=== PATIENT | male | born 1990 | race Caucasian/White ===

== ENCOUNTER 2017-01-10 19:15 | Emergency (ER) | payer OTHER ==
--- NOTE | 2017-01-10 19:46 | EDM.PDOC ---
ED HPI GENERAL MEDICAL PROBLEM - General Chief Complaint: Fever Stated Complaint: RASH, FEVER, POSSIBLE WEST NILE VIRUS Time Seen by Provider: 01/10/17 19:30 Source of Information: Reports: Patient History Limitations: Reports: No Limitations - History of Present Illness INITIAL COMMENTS - FREE TEXT/NARRATIVE: HISTORY AND PHYSICAL: History of present illness: [26-year-old male with no significant past history now presents emergency department concerned that he might have West Nile virus. Patient states she's had fevers for several days intermittently feels fatigued and has a rash. He has no headache or stiff neck. No neurologic complaints. No cough or chest pain denies abdominal pain. Had some mild loose stool because now resolved no vomiting or diarrhea.] Review of systems: As per history of present illness and below otherwise all systems reviewed and negative. Past medical history: As per history of present illness and as reviewed below otherwise noncontributory. Surgical history: As per history of present illness and as reviewed below otherwise noncontributory. Social history: No reported history of drug or alcohol abuse. Family history: As per history of present illness and as reviewed below otherwise noncontributory. Physical exam: Diffuse very mild scattered papular rash nontender. Patient well- appearing alert smiling vigorous supple neck nonfocal neuro benign exam HEENT: Atraumatic, normocephalic, pupils reactive, negative for conjunctival pallor or scleral icterus, mucous membranes moist, throat clear, neck supple, nontender, trachea midline. Lungs: Clear to auscultation, breath sounds equal bilaterally, chest nontender. Heart: S1S2, regular, negative for clicks, rubs, or JVD. Abdomen: Soft, nondistended, nontender. Negative for masses or hepatosplenomegaly. Negative for costovertebral tenderness. Pelvis: Stable nontender. Genitourinary: Deferred. Rectal: Deferred. Extremities: Atraumatic, negative for cords or calf pain. Neurovascular unremarkable. Neuro: Awake, alert, oriented. Cranial nerves II through XII unremarkable. Cerebellum unremarkable. Motor and sensory unremarkable throughout. Exam nonfocal. Diagnostics: [] Therapeutics: [] Impression: [Viral syndrome Rash] Plan: [Signs and symptoms consistent with viral syndrome however patient's well- hydrated and clinically completely normal-appearing with a benign exam. Discussed with patient that most cases of West Nile iris infection are subclinical and the treatment is supportive therapy only in the immunocompetent patient. He has no fever currently clearly supple neck with no headache. Nonfocal neuro. Discussed that is more likely the patient has a specific viral syndrome however if his symptoms persist or worsen he can follow-up with his DrMichele for serologic testing as needed. Will prescribe steroids for rash. Patient aware to follow-up with PCP and return immediately for new severe or worsening symptoms Definitive disposition and diagnosis as appropriate pending reevaluation and review of above. body pain Pain Score (Numeric/FACES): 0 - Related Data Allergies Allergy/AdvReac Type Severity Reaction Status Date / Time Penicillins Allergy Other Verified 01/10/17 19:26 Home Meds: Home Meds Prednisone [IMW: predniSONE] 60 mg PO WITHBREAKFAST #5 tab 01/10/17 [Rx] Past Medical History HEENT History: Reports: None Cardiovascular History: Reports: None Respiratory History: Reports: None Gastrointestinal History: Reports: None Genitourinary History: Reports: None Musculoskeletal History: Reports: None Neurological History: Reports: None Psychiatric History: Reports: None Endocrine/Metabolic History: Reports: None Hematologic History: Reports: None Immunologic History: Reports: None Oncologic (Cancer) History: Reports: None Dermatologic History: Reports: None - Infectious Disease History Infectious Disease History: Reports: Chicken Pox Social & Family History - Family History Family Medical History: Noncontributory - Tobacco Use Smoking Status *Q: Current Every Day Smoker Years of Tobacco use: 13 Packs/Tins Daily: 1 - Caffeine Use Caffeine Use: Reports: Soda - Recreational Drug Use Recreational Drug Use: No ED ROS GENERAL - Review of Systems Review Of Systems: See Below (History of present illness) ED EXAM, GENERAL - Physical Exam Exam: See Below (History of present illness) Course - Vital Signs Last Recorded V/S: Last Vital Signs Temp 36.1 C 01/10/17 19:26 Pulse 75 01/10/17 20:35 Resp 18 01/10/17 20:35 BP 127/77 01/10/17 20:35 Pulse Ox 98 01/10/17 20:35 Departure - Departure Time of Disposition: 19:41 Disposition: Home, Self-Care 01 Condition: Good Clinical Impression: Viral syndrome, Rash - Discharge Information Prescriptions: Prednisone [IMW: predniSONE] 60 mg PO WITHBREAKFAST #5 tab Instructions: Fever, Adult, [id number] Referrals: PCP,None [Primary Care Provider] - Forms: ED Department Discharge Additional Instructions: It appears that you have a viral syndrome. You're concerned you've been in environments with mosquitoes and regarding possibility of West Nile virus infection. Most human infections with West Nile virus do not cause any symptoms at all. Of the people that have symptoms, they are typically consistent with a viral syndrome such as colds or flu.. Rarely people get severe complication such as meningitis or infection around the brain called Encephalitis, or spinal cord problems. Again this is very rare. Given that West Nile virus is a viral syndrome there is no specific treatment and supportive therapy is administered just like for the common cold or atypical viral syndrome. There is no utility to doing serologic testing today as there is no specific treatment. If your symptoms worsen or you become increasingly or profoundly ill ,follow-up with your doctor immediately or return to the emergency department for reevaluation and further workup and treatment as needed. Always wear appropriate protective clothing and use effective insect repellent on any exposed areas when in high risk environments for mosquito bites. All up with your Dr. and return immediately for new severe or worsening symptoms
[2017-01-11 05:06] VITALS: BP 127/77
== END 2017-01-10 20:39 | disposition home or self-care (01) ==
LOC: MW.ED 19:15
DX: B34.9 Viral infection, unspecified (principal); R21 Rash and other nonspecific skin eruption; F17.210 Nicotine dependence, cigarettes, uncomplicated; Z88.0 Allergy status to penicillin
CPT/HCPCS: 99282; 99283

== ENCOUNTER 2023-10-12 | Day surgery (SDC) | payer BC, OTHER ==
[2023-10-12] MEDS: Morphine 2 MG/ML SYRINGE IVPUSH ONE ×2 (00:31→02:34)
[2023-10-12] MEDS: Sodium Chloride 0.9% 1,000 ML IV ONE (00:31)
[2023-10-12] MEDS: Ondansetron 4 MG/2 ML SDV IVPUSH ONE (00:31)
[2023-10-12 00:33] LABS: BASOPHILS ABSOLUTE AUTO 0.06 K/uL (0.00-0.20); BASOPHILS PERCENT AUTO 0.4 % (0.0-1.0); EOSINOPHILS ABSOLUTE AUTO 0.16 K/uL (0.00-0.45); IMMATURE GRAN ABSOLUTE AUTO 0.05 K/uL (0.00-0.05); IMMATURE GRAN PERCENT AUTO 0.3 % (0.0-0.4); LYMPHOCYTES ABSOLUTE AUTO 2.72 K/uL (1.00-4.80); LYMPHOCYTES PERCENT AUTO 16.8 % (24.0-44.0); MEAN CORPUSCULAR HEMOGLOBIN 30.7 pg (28.0-32.0); MEAN CORPUSCULAR HGB CONC 34.8 g/dL (32.0-36.0); MEAN CORPUSCULAR VOLUME 88.3 fL (83.0-99.0); MEAN PLATELET VOLUME 9.4 fL (9.4-12.4); MONOCYTES ABSOLUTE AUTO 1.21 K/uL (0.00-0.80); MONOCYTES PERCENT AUTO 7.5 % (0.0-8.0); NEUTROPHILS ABSOLUTE AUTO 12.03 K/uL (1.80-7.70); PLATELET COUNT,PLT 263 K/uL (150-400); RED BLOOD CELL COUNT 5.21 M/uL (4.52-5.90); WHITE BLOOD CELL COUNT,WBC 16.23 K/uL (3.9-11.3)
[2023-10-12] MEDS: Sodium Chloride 0.9% 2.5 ML Syringe FLUSH PRN (00:33)
[2023-10-12] MEDS: Sodium Chloride 0.9% 10 ML Syringe FLUSH PRN (00:33)
[2023-10-12 01:02] LABS: A/G RATIO 0.9 (0.9-1.6); ALBUMIN 3.7 g/dL (3.4-5.0); BILIRUBIN TOTAL 0.4 mg/dL (0.2-1.0); CALCIUM 9.1 mg/dL (8.5-10.1); CREATININE 1.3 mg/dL (0.8-1.3); EST CRCL DRUG DOSING (CG) 90.49 mL/min; POTASSIUM,K 4.1 mmol/L (3.5-5.1); PROTEIN TOTAL,TP 7.7 g/dL (6.4-8.2)
[2023-10-12] MEDS: Cefepime 2 GM in Sodium Chloride 0.9% 50 ML IV ONE (01:10)
[2023-10-12] MEDS: metroNIDAZOLE/Normal Saline 500 MG in Premix Bag 1 BAG IV ONE (01:22)
[2023-10-12] MEDS: Iopamidol 755 MG/ML 500 ML Multipack Bottle IVPUSH ONE (01:27)
[2023-10-12] MEDS: Lidocaine 1% with EPINEPHrine 1:100,000 50 ML MDV INFILT STA (02:32)
[2023-10-12] MEDS: Ketorolac 30 MG/ML SDV IVPUSH ONE (02:33)
[2023-10-12] MEDS: Lidocaine 1% with EPINEPHrine 1:200,000 30 ML SDV INFILT STA (02:35)
[2023-10-12] MEDS: D5 1/2 NS w/ 20 mEq/L KCl 1,000 ML IV SCH (02:57)
[2023-10-12] MEDS ORDERED: Morphine 2 MG/ML SYRINGE IVPUSH PRN ×2 (03:30→07:25)
[2023-10-12] MEDS ORDERED: HYDROmorphone 1 MG/ML Syringe IVPUSH PRN (07:25)
[2023-10-12] MEDS ORDERED: Rocuronium Bromide 50 MG/5 ML Syringe ONE (07:25)
[2023-10-12] MEDS ORDERED: fentaNYL 50 MCG/ML SDV IVPUSH PRN (07:25)
[2023-10-12] MEDS ORDERED: Lidocaine 2% 5 ML SDV ONE (07:25)
[2023-10-12] MEDS ORDERED: Albuterol 0.083% 2.5 MG/3 ML Neb Soln NEB PRN (07:25)
[2023-10-12] MEDS ORDERED: Metoclopramide 10 MG/2 ML SDV IVPUSH PRN (07:25)
[2023-10-12] MEDS ORDERED: Dexamethasone 4 MG/ML 5 ML MDV ONE (07:25)
[2023-10-12] MEDS ORDERED: Ondansetron 4 MG/2 ML SDV IVPUSH PRN (07:25)
[2023-10-12] MEDS ORDERED: droPERidol 5 MG/2 ML SDV IVPUSH PRN (07:25)
[2023-10-12] MEDS ORDERED: Ketorolac 30 MG/ML SDV ONE (07:25)
[2023-10-12] MEDS ORDERED: Sugammadex Sodium 200 MG/2 ML VIAL IV ONE (07:25)
[2023-10-12] MEDS ORDERED: Propofol 200 MG/20 ML SDV ONE (07:25)
[2023-10-12] MEDS ORDERED: Naloxone 0.4 MG/ML SDV IVPUSH PRN (07:25)
[2023-10-12] MEDS ORDERED: fentaNYL 100 MCG/2 ML SDV ONE (07:26)
[2023-10-12] MEDS ORDERED: Ketamine HCL/NACL, ISO-OSM 50 MG/5 ML Syringe ONE (07:30)
[2023-10-12] MEDS ORDERED: Bupivacaine 0.5% 30 ML SDV ONE (07:32)
[2023-10-12] MEDS ORDERED: Morphine 10 MG/ML SDV ONE (08:08)
[2023-10-12] MEDS ORDERED: Acetaminophen/HYDROcodone 325-5 MG Tab PO PRN (08:35)
[2023-10-12] MEDS ORDERED: Morphine 4 MG/ML Syringe IVPUSH PRN (08:35)
[2023-10-12] MEDS ORDERED: Lactated Ringers 1,000 ML IV SCH (08:45)
[2023-10-12] MEDS: Cefepime 2 GM in Sodium Chloride 0.9% 50 ML IV SCH (10:15)
[2023-10-12] MEDS: metroNIDAZOLE/Normal Saline 500 MG in Premix Bag 1 BAG IV SCH (11:07)
[2023-10-12 12:23] VITALS: BP 122/73; PULSE 91
== END 2023-10-12 13:40 | disposition home or self-care (01) ==
LOC: MW.ED → MW.MS 02:46 → MW.SDS 02:46
PROVIDERS: ATTEND Surgery
DX: K61.0 Anal abscess (principal); F32.A Depression, unspecified; F41.9 Anxiety disorder, unspecified; F17.210 Nicotine dependence, cigarettes, uncomplicated; Z79.899 Other long term (current) drug therapy; Z88.0 Allergy status to penicillin
CPT/HCPCS: 36415; 46050; 74177; 80053; 83605; 83690; 85025; 87040; 87070; 87075; 87205; J0665; J0692; J1100; J1836; J1885; J2270; J2405; J2704; J3010; J3490; J7030; Q9967; 96365; 96367; 96375; 96376; 99285-25; 99291; J3480